=== PATIENT | female | born 1965 | race Caucasian/White ===

== ENCOUNTER 2017-08-21 09:28 | Emergency (ER) | payer BC ==
[2017-08-21 09:37] VITALS: BP 163/88
--- NOTE | 2017-08-21 09:40 | ERNOTE ---
Lower Extremity HPI - Narrative Date of Service: 08/21/17 - pt seen at 0945 - General Time Seen by Provider: 08/21/17 09:56 Source: patient - Immun/Allergies/Home Medications Immunizations: IMMUNIZATION HX Immunizations Up to Date No History of Influenza Vaccine No Hx Pneumococcal Vaccination No Allergies/Adverse Reactions: Allergies Allergy/AdvReac Type Severity Reaction Status Date / Time No Known Allergies Allergy Verified 08/21/17 09:37 Home Medications: HOME MEDICATIONS Duloxetine HCl [Cymbalta] 60 mg PO DAILY 08/09/15 [Last Taken Unknown] Levothyroxine Sodium [Synthroid] 125 mcg PO DAILY 08/09/15 [Last Taken Unknown] HYDROcodone/ACETAMINOPHEN [Brooks 5-325] 1 each PO TID PRN #12 tablet 08/21/17 [ Last Taken Unknown] Ibuprofen [Motrin] 800 mg PO TID PRN #30 tablet 08/21/17 [Last Taken Unknown] - History of Present Illness Narrative: Patient presents to the emergency room worried that "I have a DVT" patient has had varicosities on her legs and she states they hurt mostly on the back of both knees. States that the back of the right knee hurts more than left she hasn't been exposed to no trauma. She has not had any falls or blunt trauma to her legs. Review of Systems - Review of Systems Constitutional: Present: no symptoms reported EYE: Present: no symptoms reported ENT: Present: no symptoms reported Respiratory: Present: no symptoms reported Cardiology: Present: no symptoms reported Gastrointestinal/Abdominal: Present: no symptoms reported Genitourinary: Present: no symptoms reported Musculoskeletal: Present: See HPI - Patient's Past Medical History Patient History - Medical: Anemia, Hypothyroidism Patient History - Cardiac/Respiratory: No pertinent hx Patient History - Cancer: Thyroid Patient History - Surgical Procedures: Cholecystectomy, Other Patient History - Other: None LMP (Calendar): 10/21/15 - Social History Living Situations: home Abuse History: No History of abuse Psych History: Hx of Depression Alcohol Use: none Drug Use: none - Immunizations Immunizations Up to Date: No Hx Pneumococcal Vaccination: No History of Influenza Vaccine: No Physical Exam - Physical Exam General Appearance: Present: wd/wn, alert, no apparent distress Head Exam: Present: normal inspection, no evidence of injury Ears, Nose, Throat: Present: normal ENT inspection, other - slightly injected posterior pharynx it does not appear to be of bacterial origin. Neck: Present: normal inspection Respiratory: Present: no respiratory distress, normal breath sounds, no accessory muscle use, chest nontender, lungs clear Cardiovascular/Chest: Present: regular rate, rhythm, no murmur, normal peripheral pulses Extremity Exam: Present: other - this patient does have very tortuous varicosity of the right lower extremity. Both legs are the same circumference both legs are pale and white there is no engorgement no shininess no swelling no redness on the right lower extremity, patient is slightly tender in the popliteal fossa of the right lower extremity she has a negative Homans sign and dorsiflexion of the right foot does not cause pain I do not believe this patient has a blood clot in her leg. Neurological Exam: Present: alert, oriented, normal mood/affect ED Progress - Vital Signs Patient's Vital Signs:: I have reviewed the patient's vital signs. Vital Signs: Vital Signs 08/21/17 09:33 Temperature 36.4 C L Pulse Rate 99 Respiratory 12 Rate Blood Pressure 163/88 O2 Sat by Pulse 100 Oximetry - Progress/Reassessment Chief Complaint: Lower Extremity Pain/ Injury Plan - Plan Plan: She appears to have pain in the back of her right knee this could very well be a Sterling's cyst I have asked her to follow up with her primary care physician and have reassured her that I do not believe this is a blood clot. Departure Clinical Impression: Knee pain, right Qualifiers: Chronicity: unspecified Qualified Code(s): M25.561 - Pain in right knee - Departure Disposition: Home self-care Condition: Good Instructions: Knee Pain Prescriptions: HYDROcodone/ACETAMINOPHEN [Brooks 5-325] 1 each PO TID PRN #12 tablet PRN Reason: Pain Ibuprofen [Motrin] 800 mg PO TID PRN #30 tablet PRN Reason: Pain
== END 2017-08-21 09:59 | disposition home or self-care (01) ==
LOC: ER 09:28
DX: M25.561 Pain in right knee (principal); E03.9 Hypothyroidism, unspecified; Z85.850 Personal history of malignant neoplasm of thyroid; F32.9 Major depressive disorder, single episode, unspecified